=== PATIENT | female | born 1955 | race Caucasian/White ===

== ENCOUNTER 2018-04-05 18:10 | Inpatient (IN) | payer MEDICAID ==
[2018-04-05 18:20] VITALS: BMI 29.9
[2018-04-05] MEDS ORDERED: Iohexol 240 (50 ml) PO STA (19:12)
--- NOTE | 2018-04-05 19:12 | C.PDOC ---
History Of Present Illness Patient is a 62 y/o female who presents to the ED by referral for evaluation of possible diverticulitis and abscess. Patient complains of bilateral lower quadrant pain and periumbilical redness for the last 5 days. Admits to taking Cipro and Flagyl without improvement; denies fever. Patient has Hx of appendectomy, cholecystectomy, hernia repair, and ureteral stent. No other physical complaints at this time. REFERRED FOR POSSIBLE DIVERTICULITIS, ABSCESS. B/L LQ PAIN X 5 DAYS S/P CIPRO AND FLAGYL NO IMPROVE. +REDNESS PERIUMB AREA X 5 DAYS. NO FEVER. NO FEVER. PSH APPY, CLAYTON, HERNIA, URETERAL STENT. EXAM MILD DIST NONTOXIC ABD B/L LQ TEND SOFT NO R/G SKIN +PERIUMB ERYTHEMA NONBLANCHING, NO FOCAL FLUCTUANCE REMAINDER NEG Time Seen by Provider: 04/05/18 19:06 Chief Complaint (Nursing): Abdominal Pain History Per: Patient History/Exam Limitations: no limitations Onset/Duration Of Symptoms: Days (5) Current Symptoms Are (Timing): Still Present Location Of Pain/Discomfort: RLQ, LLQ, Periumbilical (redness) Radiation Of Pain To:: None Associated Symptoms: denies: Fever Recent travel outside of the [place]: No Past Medical History Reviewed: Historical Data, Nursing Documentation, Vital Signs Vital Signs: Last Vital Signs Temp 98.4 F 04/05/18 18:20 Pulse 60 04/05/18 22:19 Resp 18 04/05/18 22:19 BP 173/86 H 04/05/18 22:19 Pulse Ox 97 04/05/18 22:55 - Medical History PMH: Diverticulitis, HTN, Kidney Stones (1981) Comment Only: Chronic Kidney Disease (SEE COMMENT) Surgical History: Appendectomy (2004), Cholecystectomy (1996), Hernia Repair Other Surgeries: ureteral stent Family History: States: No Known Family Hx - Social History Hx Tobacco Use: No Hx Alcohol Use: No Hx Substance Use: No - Immunization History Hx Tetanus Toxoid Vaccination: No Hx Influenza Vaccination: No Hx Pneumococcal Vaccination: No Review Of Systems Constitutional: Negative for: Fever, Chills Gastrointestinal: Positive for: Abdominal Pain Skin: Positive for: Other (erythema to periumbilical area) Physical Exam - Physical Exam Appears: Non-toxic, In Acute Distress (mild) Skin: Other (erythema to periumbilicus, nonblanching, no focal fluctuance) Head: Atraumatic, Normacephalic Oral Mucosa: Moist Chest: Symmetrical Cardiovascular: Rhythm Regular, No Murmur Respiratory: Normal Breath Sounds, No Rales, No Rhonchi, No Wheezing Gastrointestinal/Abdominal: Soft, Tenderness (bilateral lower quadrant tenderness), No Guarding, No Rebound Back: No CVA Tenderness Extremity: Normal ROM, No Tenderness, No Pedal Edema Neurological/Psych: Oriented x3, Normal Speech, Normal Cognition Gait: Steady ED Course And Treatment - Laboratory Results Result Diagrams: 04/05/18 19:32 04/05/18 19:32 O2 Sat by Pulse Oximetry: 97 - CT Scan/US CT abdomen/pelvis Other Rad Studies (CT/US): Interpreted By Me, Read By Radiologist CT/US Interpretation: EXAM: CT Abdomen and Pelvis With Intravenous Contrast. EXAM DATE/TIME: 04/05/2018 7:12 PM. CLINICAL HISTORY: 62 years old, female; Pain; Abdominal pain; Generalized; Additional info: Abd pain RO diveriticulitis, . abscess. TECHNIQUE: Axial computed tomography images of the abdomen and pelvis with intravenous contrast. All CT. scans at this facility use one or more dose reduction techniques, viz.: automated exposure control;. ma/kV adjustment per patient size (including targeted exams where dose is matched to indication; i.e. head); or iterative reconstruction technique. CONTRAST: 100 mL of omnipaque 350 administered intravenously. COMPARISON: CT - ABD PELVIS PO CONTRAST ONLY 2016-12-21 11:00. FINDINGS: Lung bases: Unremarkable. No mass. No consolidation. ABDOMEN: Liver: Unremarkable. No mass. Gallbladder and bile ducts: Cholecystectomy. No ductal dilation. Pancreas: Unremarkable. No mass. No ductal dilation. Spleen: Unremarkable. No splenomegaly. Adrenals: Unremarkable. No mass. Kidneys and ureters: Right kidney atrophy. No hydronephrosis. Stomach and bowel: Diverticulosis is most pronounced in the sigmoid colon. No obstruction. No. mucosal thickening. PELVIS: Appendix: No findings to suggest acute appendicitis. Bladder: Unremarkable. No mass. Reproductive: Unremarkable as visualized. ABDOMEN and PELVIS: Intraperitoneal space: Inflammatory stranding is present around the sigmoid colon without gross free. air or organized or drainable fluid collection to suggest abscess. Bones /joints: No acute fracture. No dislocation. Soft tissues: Inflammatory change and mild enhancement of the umbilicus suggests an infectious. process and probable abscess measuring 1.6 x 1.1 cm. Vasculature: Unremarkable. No abdominal aortic aneurysm. Lymph nodes: Unremarkable. No enlarged lymph nodes. IMPRESSION: 1. Acute sigmoid diverticulitis. Followup colonoscopy is recommended. 2. Inflammatory change and mild enhancement of the umbilicus suggests an infectious process and. probable abscess measuring 1.6 x 1.1 cm. Progress Note: CT abdomen/pelvis and blood work ordered. Omnipaque administered. Progress - Re-Evaluation Re-evaluation Note: 04/05/18 22:[address] REPORT REVIEWED. PENDING CALLBACK PMD 04/05/18 22:58 D/W DR CASTILLO WILL ADMIT - Data Reviewed Data Reviewed: Lab, Diagnostic imaging, Old records Disposition Counseled Patient/Family Regarding: Studies Performed, Diagnosis - Disposition Disposition: HOSPITALIZED Disposition Time: 22:59 Condition: STABLE Forms: [facility] ([place]) - POA Present On Arrival: Poor Glycemic Control - Clinical Impression Clinical Impression: Diverticulitis, Abdominal wall abscess - Scribe Statement The provider has reviewed the documentation as recorded by the Scribe Kacey Zamarripa All medical record entries made by the Scribe were at my direction and personally dictated by me. I have reviewed the chart and agree that the record accurately reflects my personal performance of the history, physical exam, medical decision making, and the department course for this patient. I have also personally directed, reviewed, and agree with the discharge instructions and disposition. Decision To Admit - Pt Status Changed To: Hospital Disposition Of: Inpatient - Admit Certification Admit to Inpatient:: After my assessment, the patient will require hospitalization for at least two midnights. This is because of the severity of symptoms shown, intensity of services needed, and/or the medical risk in this patient being treated as an outpatient. - InPatient: Physician Admission Certification:: SEE NOTE - . Bed Request Type: Regular Admitting Physician: Sandy Castillo Patient Diagnosis: Diverticulitis, Abdominal wall abscess
[2018-04-05] MEDS ORDERED: Iohexol 240 (50 ml) ONE (19:27)
[2018-04-05 19:39] LABS: BASO # 0.1 K/uL (0.0-0.2); BASO % 0.6 % (0.0-2.0); LYMPH # 1.9 K/uL (1.0-4.3); LYMPH % 22.9 % (20.0-40.0); MEAN CELL VOLUME 82.9 fL (81.0-99.0); MEAN CORPUSCULAR HEMOGLOBIN 28.2 pg (27.0-31.0); MEAN CORPUSCULAR HGB CONC 34.1 g/dL (33.0-37.0); MONO # 0.6 K/uL (0.0-0.8); MONO % 6.9 % (0.0-10.0); NEUT # 5.9 K/uL (1.8-7.0); NEUT % 69.6 % (50.0-75.0); NRBC % 0.1 % (0.0-2.0); RBC 4.97 Mil/uL (3.80-5.20); RED CELL DISTRIBUTION WIDTH 13.6 % (11.5-14.5); WHITE BLOOD COUNT 8.5 K/uL (4.8-10.8)
[2018-04-05 19:46] LABS: URINE BILIRUBIN NEGATIVE (NEGATIVE); URINE BLOOD 1+ (NEGATIVE); URINE CLARITY Clear (Clear); URINE COLOR Yellow (YELLOW); URINE GLUCOSE (UA) NORMAL (Normal); URINE LEUKOCYTE ESTERASE NEG Leu/uL (Negative); URINE PROTEIN 2+ mg/dL (NEGATIVE); URINE UROBILINOGEN NORMAL mg/dL (0.2-1.0)
[2018-04-05 20:08] LABS: ALB/GLOB RATIO 1.2 (1.0-2.1); ALBUMIN 4.7 g/dL (3.5-5.0); ALT/SGPT 37 U/L (9-52); AST/SGOT 51 U/L (14-36); BLOOD UREA NITROGEN 14 mg/dL (7-17); CALCIUM 9.7 mg/dl (8.6-10.4); GFR AFRICAN-AMERICAN > 60; GFR NON-AFRICAN AMERICAN > 60; LIPASE 87 U/L (23-300)
[2018-04-05] MEDS ORDERED: Iohexol 350mg/ml 100 ML ONE (21:00)
[2018-04-05] MEDS ORDERED: Piperacillin/Tazobact 3.375 gm 100 ML IV STA (22:44)
[2018-04-05] MEDS ORDERED: Piperacillin/Tazobact 3.375 gm 100 ML IVPB ONE (22:55)
[2018-04-05] MEDS ORDERED: Piperacillin/Tazobact 3.375 gm 100 ML IVPB SCH (23:15)
[2018-04-05] MEDS: metroNIDAZOLE IV 500 mg/100 ml 500 MG/100 ML BAG IVPB SCH (23:40)
[2018-04-06] MEDS: metroNIDAZOLE IV 500 mg/100 ml 500 MG/100 ML BAG IVPB SCH ×3 (05:16→21:28)
--- NOTE | 2018-04-06 06:23 | CP.PCM.CON ---
History of Present Illness - History of Present Illness History of Present Illness: 62 F w PMH of appendectomy, lap malcolm and hernia repair came with abdominal pain and umbilical redness and swelling that started 1 week ago. Pt went to PMD and was prescribed ABX but no imporvement. Pt had multiple abdominal surgeries in the past including laparoscopic surgeries. None recent. She is prone to hypertrophic scars. Denies fever, nausea, vomiting, diarrhea, weakness, cp, SOB , hematochezia, hematemesis, recent travels, trauma. Pain is located on umbilical area. Doesn' radiate. Surgery is consulted to evaluate for umbilical abscess and diverticulitis. PMH: hyperthrophic scars PSH: See above SS: moved from [place], lives with family Review of Systems - Review of Systems Review of Systems: See HPI Past Patient History - Past Medical History & Family History Past Medical History?: Yes - Past Social History Smoking Status: Never Smoked - CARDIAC Hx Cardiac Disorders: Yes Hx Hypertension: Yes - PULMONARY Hx Respiratory Disorders: No - NEUROLOGICAL Hx Neurological Disorder: No - HEENT Hx HEENT Problems: No - RENAL Hx Chronic Kidney Disease: (SEE COMMENT) Hx Kidney Stones: Yes (1981) - ENDOCRINE/METABOLIC Hx Endocrine Disorders: No - HEMATOLOGICAL/ONCOLOGICAL Hx Blood Disorders: No - INTEGUMENTARY Hx Dermatological Problems: No - MUSCULOSKELETAL/RHEUMATOLOGICAL Hx Falls: No - GASTROINTESTINAL Hx Gastrointestinal Disorders: Yes Hx Diverticulitis: Yes - GENITOURINARY/GYNECOLOGICAL Hx Genitourinary Disorders: No - PSYCHIATRIC Hx Substance Use: No - SURGICAL HISTORY Hx Surgeries: Yes Hx Appendectomy: Yes (2004) Hx Cholecystectomy: Yes (1996) Other/Comment: Hernia repair - ANESTHESIA Hx Anesthesia: Yes Hx Anesthesia Reactions: No Hx Malignant Hyperthermia: No Has any member of the family had a problem w/ anesthesia?: No Meds Allergies/Adverse Reactions: Allergies Allergy/AdvReac Type Severity Reaction Status Date / Time Sulfa (Sulfonamide Allergy ANAPHYLAXIS Verified 04/05/18 18:17 Antibiotics) - Medications Medications: Current Medications Acetaminophen (Tylenol 325mg Tab) 650 mg PO PRN PRN PRN Reason: Pain, moderate (4-7) Last Admin: 04/06/18 01:04 Dose: 650 mg Atenolol (Tenormin) 100 mg PO DAILY [facility] Enoxaparin Sodium (Lovenox) 40 mg SC DAILY [facility] Sodium Chloride (Sodium Chloride 0.45%) 2,000 mls @ 40 mls/hr IV .Q24H [facility] Last Admin: 04/06/18 01:00 Dose: 40 mls/hr Metronidazole (Flagyl) 500 mg in 100 mls @ 100 mls/hr IVPB Q8 [facility] PRN Reason: Protocol Last Admin: 04/06/18 05:16 Dose: 100 mls/hr Piperacillin Sod/Tazobactam Sod (Zosyn 3.375 Gm Iv Premix) 3.375 gm in 50 mls @ 100 mls/hr IVPB Q8H [facility] PRN Reason: Protocol Pantoprazole Sodium (Protonix Ec Tab) 40 mg PO DAILY [facility] Physical Exam - Constitutional Appears: No Acute Distress - Head Exam Head Exam: ATRAUMATIC, NORMAL INSPECTION, NORMOCEPHALIC - Eye Exam Eye Exam: EOMI, Normal appearance, PERRL Pupil Exam: NORMAL ACCOMODATION, PERRL - ENT Exam ENT Exam: Mucous Membranes Moist, Normal Exam - Neck Exam Neck exam: Positive for: Normal Inspection - Respiratory Exam Respiratory Exam: Clear to Auscultation Bilateral, NORMAL BREATHING PATTERN - Cardiovascular Exam Cardiovascular Exam: REGULAR RHYTHM - GI/Abdominal Exam GI & Abdominal Exam: Normal Bowel Sounds, Soft, Tenderness. absent: Distended, Firm, Guarding, Hernia, Mass, Rebound, Rigid Additional comments: umbilicaus has 08w30sn erythema around it. TTP. Indurated. Multiple healed abdominal scars. hyperthrophic scars. - Exam Exam: NORMAL INSPECTION - Extremities Exam Extremities exam: Positive for: normal inspection - Back Exam Back exam: NORMAL INSPECTION - Neurological Exam Neurological exam: Alert, CN II-XII Intact, Normal Gait, Oriented x3, Reflexes Normal - Psychiatric Exam Psychiatric exam: Normal Affect, Normal Mood - Skin Skin Exam: Dry, Erythema, Intact, Warm Results - Vital Signs Recent Vital Signs: Last Vital Signs Temp 97.9 F 04/06/18 03:07 Pulse 58 L 04/06/18 03:07 Resp 20 04/06/18 03:07 BP 127/71 04/06/18 03:07 Pulse Ox 98 04/06/18 03:07 - Labs Result Diagrams: 04/05/18 19:32 04/05/18 19:32 Labs: Laboratory Results - last 24 hr 04/05/18 04/05/18 04/05/18 19:32 19:32 19:32 WBC 8.5 RBC 4.97 Hgb 14.0 Hct 41.2 MCV 82.9 MCH 28.2 MCHC 34.1 RDW 13.6 Plt Count 260 MPV 9.0 Neut % (Auto) 69.6 Lymph % (Auto) 22.9 [place] % (Auto) 6.9 Eos % (Auto) 0.0 Baso % (Auto) 0.6 Neut # (Auto) 5.9 Lymph # (Auto) 1.9 [place] # (Auto) 0.6 Eos # (Auto) 0.0 Baso # (Auto) 0.1 Sodium 140 Potassium 4.9 Chloride 105 Carbon Dioxide 22 Anion Gap 10 BUN 14 Creatinine 0.7 Est GFR ( Amer) > 60 Est GFR (Non-Af Amer) > 60 Random Glucose 116 H Calcium 9.7 Total Bilirubin 1.0 AST 51 H ALT 37 Alkaline Phosphatase 100 Total Protein 8.8 H Albumin 4.7 Globulin 4.1 H Albumin/Globulin Ratio 1.2 Lipase 87 Urine Color Yellow Urine Clarity Clear Urine pH 5.0 Ur Specific [place] 1.013 Urine Protein 2+ H Urine Glucose (UA) Normal Urine Ketones Negative Urine Blood 1+ H Urine Nitrate Negative Urine Bilirubin Negative Urine Urobilinogen Normal Ur Leukocyte Esterase Neg Urine WBC (Auto) 3 Urine RBC (Auto) 1 Assessment & Plan - Assessment and Plan (Free Text) Assessment: Umibilical abscess and diverticulitis -ABX -IVF -May need I &D -Warm compress DW Dr. Kramer
[2018-04-06] MEDS: Piperacill/Tazo 3.375gm in Dex 3.375 GM/50 ML BAG IVPB SCH ×3 (06:31→22:50)
[2018-04-06] MEDS ORDERED: Lactated Ringer's 1,000 ML IV SCH (08:45)
[2018-04-06 09:20] LABS: INR 1.3; PROTHROMBIN TIME 13.9 SECONDS (9.7-12.2)
[2018-04-06] MEDS: Pantoprazole 40 mg EC Tab PO SCH ×2 (09:20→10:57)
[2018-04-06] MEDS ORDERED: Propofol 10 mg/ml Inj (20 ML) ONE (09:26)
[2018-04-06] MEDS ORDERED: Midazolam 2 MG/2 ML VIAL ONE (09:26)
[2018-04-06] MEDS ORDERED: ePHEDrine 50 mg/ml Inj ONE (09:41)
[2018-04-06] MEDS ORDERED: Lactated Ringer's 1,000 ML IV ONE (09:49)
[2018-04-06] MEDS ORDERED: HYDROmorphone 0.5 mg/0.5 ml ISec IVP PRN (09:52)
--- NOTE | 2018-04-06 09:52 | PCM.SURG1 ---
Surgeon's Initial Post Op Note - Surgeon's Notes Surgeon: MD Ca Rug Hooker Hand: JEEVAN Sousa Pre-Operative Diagnosis: Umbilical abscess Operative Findings: Umbilical abscess Post-Operative Diagnosis: umbilical abscess Operation Performed: Incision and drainage of umbilical abscess Specimen/Specimens Removed: culture of abscess Estimated Blood Loss: EBL {In ML}: 3 Date of Surgery/Procedure: 04/06/18 Time of Surgery/Procedure: 09:00
[2018-04-06] MEDS ORDERED: Enoxaparin 150 mg Syringe SC SCH (10:00)
[2018-04-06] MEDS: HYDROmorphone 0.5 mg/0.5 ml ISec IVP PRN ×2 (10:58→16:33)
--- NOTE | 2018-04-06 11:23 | CT ---
PROCEDURE: CT Abdomen and Pelvis with contrast HISTORY: ABD PAIN RO DIVERITICULITIS, ABSCESS COMPARISON: None. TECHNIQUE: Contrast dose: 100 mL Omnipaque 350 Radiation dose: Total exam DLP = 498.38 mGy-cm. This CT exam was performed using one or more of the following dose reduction techniques: Automated exposure control, adjustment of the mA and/or kV according to patient size, and/or use of iterative reconstruction technique. FINDINGS: LOWER THORAX: Unremarkable. LIVER: Unremarkable. No gross lesion or ductal dilatation. GALLBLADDER AND BILE DUCTS: Status post cholecystectomy PANCREAS: Unremarkable. No gross lesion or ductal dilatation. SPLEEN: Unremarkable. ADRENALS: Unremarkable. No mass. KIDNEYS AND URETERS: Several small bilateral renal cortical cysts. Extensive right renal atrophy. Largest cyst in right kidney, 2.4 cm. No calculus or hydronephrosis. VASCULATURE: Unremarkable. No aortic aneurysm. BOWEL: Acute sigmoid diverticulitis. No abscess. No free air. No other abnormal bowel loops. APPENDIX: Postoperative changes consistent with prior appendectomy. PERITONEUM: No ascites. No pneumoperitoneum. Bilobed fluid collection deep to the emboli kiss with peripheral enhancement around 1 of the 2 small collections measuring 1.5 cm in diameter. Possible abscess. Overlying skin thickening suggests possible cellulitis. Stranding of surrounding subcutaneous fat. LYMPH NODES: Unremarkable. No enlarged lymph nodes. BLADDER: Unremarkable. REPRODUCTIVE: Normal uterus BONES: No acute fracture. OTHER FINDINGS: None. IMPRESSION: Findings consistent with acute sigmoid diverticulitis. No abscess. No free air. No other acute abnormality. Status post appendectomy and cholecystectomy. Possible cellulitis and small umbilical abscess. Correlate clinically. Preliminary interpretation of this examination was reported by [facility] at 10:40 p.m. on 04/05/2018. There is concurrence of this report with the preliminary interpretation.
[2018-04-06] MEDS ORDERED: Sodium Chloride 0.9% 1,000 ML IV SCH ×2 (16:45→22:08)
[2018-04-06] MEDS ORDERED: Sodium Chloride 0.45% 1,000 ML IV SCH (22:45)
[2018-04-07] MEDS: metroNIDAZOLE IV 500 mg/100 ml 500 MG/100 ML BAG IVPB SCH ×3 (05:34→21:13)
--- NOTE | 2018-04-07 06:24 | CP.PCM.PN ---
Subjective - Date & Time of Evaluation Date of Evaluation: 04/07/18 Time of Evaluation: 06:21 - Subjective Subjective: SURGERY PROGRESS NOTE 62F seen and examined at bedside. Patient states pain is improved, had some nausea yesterday after the operation after eating but is now tolerating clear liquids. Denies fever or chills. Objective - Vital Signs/Intake and Output Vital Signs (last 24 hours): Temp Pulse Resp BP Pulse Ox 98.4 F 85 18 157/77 H 99 04/07/18 00:00 04/07/18 00:00 04/07/18 00:00 04/07/18 00:00 04/07/18 00:00 Intake and Output: 04/06/18 04/07/18 18:59 06:59 Intake Total 1680 400 Balance 1680 400 - Medications Medications: Current Medications Acetaminophen (Tylenol 325mg Tab) 650 mg PO PRN PRN PRN Reason: Pain, moderate (4-7) Last Admin: 04/06/18 01:04 Dose: 650 mg Amlodipine Besylate (Norvasc) 5 mg PO DAILY [facility] Atenolol (Tenormin) 100 mg PO DAILY [facility] Last Admin: 04/06/18 10:57 Dose: 100 mg Enoxaparin Sodium (Lovenox) 40 mg SC DAILY [facility] Hydromorphone HCl (Dilaudid) 0.5 mg IVP Q4H PRN PRN Reason: Pain, severe (8-10) Last Admin: 04/06/18 16:33 Dose: 0.5 mg Metronidazole (Flagyl) 500 mg in 100 mls @ 100 mls/hr IVPB Q8 [facility] PRN Reason: Protocol Last Admin: 04/07/18 05:34 Dose: 100 mls/hr Piperacillin Sod/Tazobactam Sod (Zosyn 3.375 Gm Iv Premix) 3.375 gm in 50 mls @ 100 mls/hr IVPB Q8H [facility] PRN Reason: Protocol Last Admin: 04/06/18 22:50 Dose: 100 mls/hr Sodium Chloride (Sodium Chloride 0.45%) 1,000 mls @ 50 mls/hr IV .Q20H [facility] Last Admin: 04/06/18 22:51 Dose: 50 mls/hr Ondansetron HCl (Zofran Inj) 4 mg IVP Q4 PRN PRN Reason: Nausea/Vomiting Last Admin: 04/06/18 16:50 Dose: 4 mg Pantoprazole Sodium (Protonix Ec Tab) 40 mg PO DAILY [facility] Last Admin: 04/06/18 10:57 Dose: 40 mg - Labs Labs: 04/05/18 19:32 04/05/18 19:32 PT 13.9 SECONDS (9.7-12.2) H 04/06/18 08:58 INR 1.3 04/06/18 08:58 APTT 34 SECONDS (21-34) 04/06/18 08:58 - Constitutional Appears: Non-toxic, No Acute Distress - Respiratory Exam Respiratory Exam: Clear to Ausculation Bilateral, NORMAL BREATHING PATTERN - Cardiovascular Exam Cardiovascular Exam: REGULAR RHYTHM, +S1, +S2 - GI/Abdominal Exam GI & Abdominal Exam: Soft, Tenderness (tenderness around umbilicus, dressing is mildy stain with serosang fluid, purulent drainage, packing in place). absent: Distended, Firm, Guarding, Rigid, Rebound Assessment and Plan - Assessment and Plan (Free Text) Assessment: 62F s/p I&D of umbilical abscess Plan: adv diet as raheem pain control Monitor I&D site dressing changes monitor CBC Further recs discuss with Dr. Ca Sousa, PGY2
[2018-04-07] MEDS: Piperacill/Tazo 3.375gm in Dex 3.375 GM/50 ML BAG IVPB SCH ×3 (06:48→22:39)
[2018-04-07 08:52] LABS: BASO % 0.3 % (0.0-2.0); HEMOGLOBIN 13.9 g/dL (11.0-16.0); LYMPH # 2.3 K/uL (1.0-4.3); LYMPH % 16.2 % (20.0-40.0); MEAN CORPUSCULAR HEMOGLOBIN 28.4 pg (27.0-31.0); MEAN CORPUSCULAR HGB CONC 34.2 g/dL (33.0-37.0); MEAN PLATELET VOLUME 8.9 fL (7.2-11.7); MONO # 0.9 K/uL (0.0-0.8); MONO % 6.1 % (0.0-10.0); NEUT # 10.9 K/uL (1.8-7.0); NEUT % 77.4 % (50.0-75.0); RBC 4.9 Mil/uL (3.80-5.20); RED CELL DISTRIBUTION WIDTH 13.4 % (11.5-14.5); WHITE BLOOD COUNT 14.1 K/uL (4.8-10.8)
[2018-04-07 09:04] LABS: BLOOD UREA NITROGEN 8 mg/dL (7-17); CALCIUM 8.6 mg/dl (8.6-10.4); GFR AFRICAN-AMERICAN > 60; GFR NON-AFRICAN AMERICAN > 60
[2018-04-07] MEDS: Enoxaparin 40 mg Syringe SC SCH (09:04)
[2018-04-07] MEDS: Pantoprazole 40 mg EC Tab PO SCH (09:04)
[2018-04-07] MEDS ORDERED: Potassium Chloride 20 mEq ER Tab PO SCH (10:00)
--- NOTE | 2018-04-07 16:42 | CP.PCM.HP ---
History of Present Illness - History of Present Illness History of Present Illness: 62 year old treated as oupt for cellulitis periumbelical and sigmoid diverticulitis with avelox. Pt's cellulits did not improve and showed a induration periumbilical with tenderness. PT was admited for IV abx and suspected abd abscess. Present on Admission - Present on Admission Any Indicators Present on Admission: No Review of Systems - Constitutional Constitutional: absent: Chills, Fatigue, Fever - EENT Eyes: absent: Blurred Vision Ears: absent: Decreased Hearing - Cardiovascular Cardiovascular: absent: Chest Pain - Respiratory Respiratory: absent: Wheezing - Gastrointestinal Gastrointestinal: Abdominal Pain Past Patient History - Past Medical History & Family History Past Medical History?: Yes - Past Social History Smoking Status: Never Smoked - CARDIAC Hx Cardiac Disorders: Yes Hx Hypertension: Yes - PULMONARY Hx Respiratory Disorders: No - NEUROLOGICAL Hx Neurological Disorder: No - HEENT Hx HEENT Problems: No - RENAL Hx Chronic Kidney Disease: (SEE COMMENT) Hx Kidney Stones: Yes (1981) - ENDOCRINE/METABOLIC Hx Endocrine Disorders: No - HEMATOLOGICAL/ONCOLOGICAL Hx Blood Disorders: No - INTEGUMENTARY Hx Dermatological Problems: No - MUSCULOSKELETAL/RHEUMATOLOGICAL Hx Falls: No - GASTROINTESTINAL Hx Gastrointestinal Disorders: Yes Hx Diverticulitis: Yes - GENITOURINARY/GYNECOLOGICAL Hx Genitourinary Disorders: No - PSYCHIATRIC Hx Substance Use: No - SURGICAL HISTORY Hx Surgeries: Yes Hx Appendectomy: Yes (2004) Hx Cholecystectomy: Yes (1996) Other/Comment: Hernia repair - ANESTHESIA Hx Anesthesia: Yes Hx Anesthesia Reactions: No Hx Malignant Hyperthermia: No Has any member of the family had a problem w/ anesthesia?: No Meds Home Medications: Home Medication List Medication Instructions Recorded Confirmed Type Pantoprazole [Protonix EC Tab] 40 mg PO DAILY ect 04/09/18 Rx Allergies/Adverse Reactions: Allergies Allergy/AdvReac Type Severity Reaction Status Date / Time Sulfa (Sulfonamide Allergy ANAPHYLAXIS Verified 04/05/18 18:17 Antibiotics) Physical Exam - Constitutional Appears: Well, Non-toxic - Eye Exam Eye Exam: Normal appearance - ENT Exam ENT Exam: Mucous Membranes Moist - Respiratory Exam Respiratory Exam: Clear to Auscultation Bilateral. absent: Rales, Rhonchi, Wheezes - Cardiovascular Exam Cardiovascular Exam: REGULAR RHYTHM, RRR, +S1, +S2. absent: JVD - GI/Abdominal Exam GI & Abdominal Exam: Normal Bowel Sounds, Tenderness Additional comments: periumbical redness and tenderness Results - Vital Signs Recent Vital Signs: Last Vital Signs Temp 98.9 F 04/07/18 08:00 Pulse 86 04/07/18 08:00 Resp 18 04/07/18 08:00 BP 150/70 04/07/18 08:00 Pulse Ox 98 04/07/18 08:00 - Labs Result Diagrams: 04/09/18 07:18 04/09/18 07:18 Labs: Laboratory Results - last 24 hr 04/07/18 04/07/18 08:30 08:30 WBC 14.1 H D RBC 4.90 Hgb 13.9 Hct 40.7 MCV 83.0 MCH 28.4 MCHC 34.2 RDW 13.4 Plt Count 238 MPV 8.9 Neut % (Auto) 77.4 H Lymph % (Auto) 16.2 L [place] % (Auto) 6.1 Eos % (Auto) 0.0 Baso % (Auto) 0.3 Neut # (Auto) 10.9 H Lymph # (Auto) 2.3 [place] # (Auto) 0.9 H Eos # (Auto) 0.0 Baso # (Auto) 0.0 Sodium 140 Potassium 3.2 L Chloride 102 Carbon Dioxide 23 Anion Gap 19 BUN 8 Creatinine 0.8 Est GFR ( Amer) > 60 Est GFR (Non-Af Amer) > 60 Random Glucose 125 H Calcium 8.6 Phosphorus 4.0 Magnesium 1.8 Assessment & Plan - Assessment and Plan (Free Text) Assessment: Acute sigmoid diverticulitis periumbelical cellulitis and abscess HTN abx blood culture surgical and gi eval fluids clear liquids
--- NOTE | 2018-04-07 16:45 | CP.PCM.PN ---
Subjective - Date & Time of Evaluation Date of Evaluation: 04/07/18 Time of Evaluation: 16:45 - Subjective Subjective: PT reports no abd pain, does feel nausea. No chest pain or sob. PT states she has not been driking much due to nausea. pt feels otherwise ok;. sp drainage of abd abscess. _+loose bm Objective - Vital Signs/Intake and Output Vital Signs (last 24 hours): Temp Pulse Resp BP Pulse Ox 98.9 F 86 18 150/70 98 04/07/18 08:00 04/07/18 08:00 04/07/18 08:00 04/07/18 08:00 04/07/18 08:00 Intake and Output: 04/07/18 04/07/18 06:59 18:59 Intake Total 920 700 Balance 920 700 - Medications Medications: Current Medications Acetaminophen (Tylenol 325mg Tab) 650 mg PO PRN PRN PRN Reason: Pain, moderate (4-7) Last Admin: 04/06/18 01:04 Dose: 650 mg Amlodipine Besylate (Norvasc) 5 mg PO DAILY [facility] Last Admin: 04/07/18 09:04 Dose: 5 mg Atenolol (Tenormin) 100 mg PO DAILY [facility] Last Admin: 04/07/18 09:04 Dose: 100 mg Enoxaparin Sodium (Lovenox) 40 mg SC DAILY [facility] Last Admin: 04/07/18 09:04 Dose: 40 mg Hydromorphone HCl (Dilaudid) 0.5 mg IVP Q4H PRN PRN Reason: Pain, severe (8-10) Last Admin: 04/06/18 16:33 Dose: 0.5 mg Metronidazole (Flagyl) 500 mg in 100 mls @ 100 mls/hr IVPB Q8 [facility] PRN Reason: Protocol Last Admin: 04/07/18 13:05 Dose: 100 mls/hr Piperacillin Sod/Tazobactam Sod (Zosyn 3.375 Gm Iv Premix) 3.375 gm in 50 mls @ 100 mls/hr IVPB Q8H [facility] PRN Reason: Protocol Last Admin: 04/07/18 14:35 Dose: 100 mls/hr Potassium Chloride/Dextrose/Sod Cl (Potassium Chl 20 Meq In D5-1/2ns) 1,000 mls @ 100 mls/hr IV .Q10H [facility] Metoclopramide HCl (Reglan) 10 mg IVP Q6H [facility] Pantoprazole Sodium (Protonix Ec Tab) 40 mg PO DAILY [facility] Last Admin: 04/07/18 09:04 Dose: 40 mg Potassium Chloride (K-Dur 20 Meq Er Tab) 20 meq PO DAILY [facility] Last Admin: 04/07/18 09:59 Dose: 20 meq - Labs Labs: 04/07/18 08:30 04/07/18 08:30 PT 13.9 SECONDS (9.7-12.2) H 04/06/18 08:58 INR 1.3 04/06/18 08:58 APTT 34 SECONDS (21-34) 04/06/18 08:58 - Constitutional Appears: Non-toxic, No Acute Distress - Eye Exam Eye Exam: Normal appearance - ENT Exam ENT Exam: Mucous Membranes Moist - Respiratory Exam Respiratory Exam: Clear to Ausculation Bilateral, NORMAL BREATHING PATTERN. absent: Rales - Cardiovascular Exam Cardiovascular Exam: RRR, +S1, +S2. absent: JVD, Rubs - GI/Abdominal Exam GI & Abdominal Exam: Normal Bowel Sounds - Extremities Exam Extremities Exam: Normal Inspection. absent: Pedal Edema (abdomen, no discharge form abdomen, site of abscess dranage, redness better.) Assessment and Plan - Assessment and Plan (Free Text) Assessment: acute sigmoid diverticulitis\ sp drainage of periumbilical abscess low K htn nausea fluids changed K being replaced cont abx loose bm check for c diff bp meds adjusted
[2018-04-07] MEDS: Potassium Chloride 20 MEQ in Dextrose 5%/0.45% NS 1,000 ML IV SCH (17:13)
[2018-04-08] MEDS: Potassium Chloride 20 MEQ in Dextrose 5%/0.45% NS 1,000 ML IV SCH ×4 (02:55→19:00)
[2018-04-08] MEDS: metroNIDAZOLE IV 500 mg/100 ml 500 MG/100 ML BAG IVPB SCH ×3 (05:05→21:13)
[2018-04-08] MEDS: Piperacill/Tazo 3.375gm in Dex 3.375 GM/50 ML BAG IVPB SCH ×3 (07:02→23:29)
[2018-04-08 07:24] LABS: BASO % 0.6 % (0.0-2.0); EOS % 0.1 % (0.0-4.0); HEMOGLOBIN 12.8 g/dL (11.0-16.0); LYMPH # 1.6 K/uL (1.0-4.3); LYMPH % 19.5 % (20.0-40.0); MEAN CELL VOLUME 82.8 fL (81.0-99.0); MEAN CORPUSCULAR HEMOGLOBIN 28.5 pg (27.0-31.0); MEAN CORPUSCULAR HGB CONC 34.5 g/dL (33.0-37.0); MONO # 0.7 K/uL (0.0-0.8); MONO % 8.7 % (0.0-10.0); NEUT # 5.8 K/uL (1.8-7.0); NEUT % 71.1 % (50.0-75.0); NRBC % 0.1 % (0.0-2.0); RBC 4.5 Mil/uL (3.80-5.20); WHITE BLOOD COUNT 8.1 K/uL (4.8-10.8)
[2018-04-08 07:49] LABS: BLOOD UREA NITROGEN 5 mg/dL (7-17); CALCIUM 8.5 mg/dl (8.6-10.4); GFR AFRICAN-AMERICAN > 60; GFR NON-AFRICAN AMERICAN > 60
--- NOTE | 2018-04-08 07:55 | OP ---
PROCEDURE DATE: 04/06/2018 PREOPERATIVE DIAGNOSIS: Abdominal wall abscess possible intraabdominal abscess. PROCEDURE: Incision and drainage. SURGEON: Ronnie Kramer Jr., MD. CANE SPLICER: James Mandel. ANESTHESIOLOGIST: Oswaldo López DO INDICATIONS: A 62-year-old woman, history of previous surgery via her umbilicus and previous repair of a hernia, who now presents with an abscess centered around the umbilicus in the old scar. OPERATIVE FINDINGS: Initially, we attempted to aspirate this and we were unsuccessful in aspirating any fluid. We then made a direct incision over it and there was approximately 5 mL of pus, which came out. This was sent for culture and sensitivity as well as Gram stain. This was irrigated out. There was no involvement of the bowel and I was unable to palpate any mesh underneath the incision. We then packed the wound open and terminated the procedure. Blood loss for the procedure was 3 mL. Operation carried out, incision and drainage of abdominal wall/intraabdominal abscess. Ronnie Kramer Jr., MD
[2018-04-08 08:17] VITALS: RESP 20
[2018-04-08] MEDS: Enoxaparin 40 mg Syringe SC SCH (10:02)
[2018-04-08] MEDS: Pantoprazole 40 mg EC Tab PO SCH (10:02)
[2018-04-08] MEDS ORDERED: Oxycodone/Acetaminophen 5/325 mg Tab PO PRN (13:59)
--- NOTE | 2018-04-08 14:03 | CP.PCM.PN ---
Subjective - Date & Time of Evaluation Date of Evaluation: 04/08/18 Time of Evaluation: 14:00 - Subjective Subjective: Surgery Pt seen and examined with Dr. Penaloza. No acute events. Denies fever, nausea, diarhea. pain controlled. Tolerating diet. Voiding. Dressing changed . Objective - Vital Signs/Intake and Output Vital Signs (last 24 hours): Temp Pulse Resp BP Pulse Ox 98.3 F 60 20 133/83 96 04/08/18 08:15 04/08/18 08:15 04/08/18 08:15 04/08/18 08:15 04/08/18 08:15 Intake and Output: 04/08/18 04/08/18 06:59 18:59 Intake Total 1870 Balance 1870 - Medications Medications: Current Medications Acetaminophen (Tylenol 325mg Tab) 650 mg PO Q8 PRN PRN Reason: Pain, moderate (4-7) Amlodipine Besylate (Norvasc) 5 mg PO DAILY [facility] Last Admin: 04/08/18 10:03 Dose: 5 mg Atenolol (Tenormin) 100 mg PO DAILY [facility] Last Admin: 04/08/18 10:03 Dose: 100 mg Enoxaparin Sodium (Lovenox) 40 mg SC DAILY [facility] Last Admin: 04/08/18 10:02 Dose: 40 mg Hydromorphone HCl (Dilaudid) 0.5 mg IVP Q4H PRN PRN Reason: Pain, severe (8-10) Last Admin: 04/06/18 16:33 Dose: 0.5 mg Metronidazole (Flagyl) 500 mg in 100 mls @ 100 mls/hr IVPB Q8 [facility] PRN Reason: Protocol Last Admin: 04/08/18 13:54 Dose: 100 mls/hr Piperacillin Sod/Tazobactam Sod (Zosyn 3.375 Gm Iv Premix) 3.375 gm in 50 mls @ 100 mls/hr IVPB Q8H [facility] PRN Reason: Protocol Last Admin: 04/08/18 07:02 Dose: 100 mls/hr Potassium Chloride 20 meq/ (Dextrose/Sodium Chloride) 1,010 mls @ 100 mls/hr IV .Q10H6M [facility] Last Admin: 04/08/18 05:04 Dose: 100 mls/hr Metoclopramide HCl (Reglan) 10 mg IVP Q6H [facility] Last Admin: 04/08/18 10:02 Dose: 10 mg Oxycodone/Acetaminophen (Percocet 5/325 Mg Tab) 2 tab PO Q4H PRN PRN Reason: Pain, moderate (4-7) Stop: 04/11/18 14:00 Pantoprazole Sodium (Protonix Ec Tab) 40 mg PO DAILY [facility] Last Admin: 04/08/18 10:02 Dose: 40 mg - Labs Labs: 04/08/18 07:05 04/08/18 07:05 PT 13.9 SECONDS (9.7-12.2) H 04/06/18 08:58 INR 1.3 04/06/18 08:58 APTT 34 SECONDS (21-34) 04/06/18 08:58 - Constitutional Appears: No Acute Distress - Head Exam Head Exam: ATRAUMATIC, NORMAL INSPECTION, NORMOCEPHALIC - Eye Exam Eye Exam: EOMI, Normal appearance, PERRL Pupil Exam: NORMAL ACCOMODATION, PERRL - ENT Exam ENT Exam: Mucous Membranes Moist, Normal Exam - Neck Exam Neck Exam: Full ROM, Normal Inspection. absent: Lymphadenopathy - Respiratory Exam Respiratory Exam: Clear to Ausculation Bilateral, NORMAL BREATHING PATTERN - Cardiovascular Exam Cardiovascular Exam: REGULAR RHYTHM, +S1, +S2. absent: Murmur - GI/Abdominal Exam GI & Abdominal Exam: Soft, Normal Bowel Sounds. absent: Tenderness Additional comments: umbilical incision. draining SS fluids. 3cm incision. open. - Exam Exam: NORMAL INSPECTION - Extremities Exam Extremities Exam: Full ROM, Normal Capillary Refill, Normal Inspection. absent : Joint Swelling, Pedal Edema - Back Exam Back Exam: NORMAL INSPECTION - Neurological Exam Neurological Exam: Alert, Awake, CN II-XII Intact, Normal Gait, Oriented x3 - Psychiatric Exam Psychiatric exam: Normal Affect, Normal Mood - Skin Skin Exam: Dry, Erythema, Warm Assessment and Plan - Assessment and Plan (Free Text) Assessment: 62F POD 2 s/p I&D of umbilical abscess Plan: Clear for DC for surgical standpoint. adv diet as raheem pain control Monitor I&D site dressing changes monitor CBC OK to shower ABX discussed with Dr. Penaloza
--- NOTE | 2018-04-08 14:14 | CP.PCM.PN ---
Subjective - Date & Time of Evaluation Date of Evaluation: 04/08/18 Time of Evaluation: 17:49 - Subjective Subjective: Low K being repaleced today PT feels better wants to eat regular food however stool reported dark in color sent for delores tolentino diff calcium being replaced as well cont abx gi eval Objective - Vital Signs/Intake and Output Vital Signs (last 24 hours): Temp Pulse Resp BP Pulse Ox 98.3 F 60 20 133/83 96 04/08/18 08:15 04/08/18 08:15 04/08/18 08:15 04/08/18 08:15 04/08/18 08:15 Intake and Output: 04/08/18 04/08/18 06:59 18:59 Intake Total 1870 Balance 1870 - Medications Medications: Current Medications Acetaminophen (Tylenol 325mg Tab) 650 mg PO Q8 PRN PRN Reason: Pain, MILD 1-3 Amlodipine Besylate (Norvasc) 5 mg PO DAILY [facility] Last Admin: 04/08/18 10:03 Dose: 5 mg Atenolol (Tenormin) 100 mg PO DAILY [facility] Last Admin: 04/08/18 10:03 Dose: 100 mg Enoxaparin Sodium (Lovenox) 40 mg SC DAILY [facility] Last Admin: 04/08/18 10:02 Dose: 40 mg Hydromorphone HCl (Dilaudid) 0.5 mg IVP Q4H PRN PRN Reason: Pain, severe (8-10) Last Admin: 04/06/18 16:33 Dose: 0.5 mg Metronidazole (Flagyl) 500 mg in 100 mls @ 100 mls/hr IVPB Q8 [facility] PRN Reason: Protocol Last Admin: 04/08/18 13:54 Dose: 100 mls/hr Piperacillin Sod/Tazobactam Sod (Zosyn 3.375 Gm Iv Premix) 3.375 gm in 50 mls @ 100 mls/hr IVPB Q8H [facility] PRN Reason: Protocol Last Admin: 04/08/18 07:02 Dose: 100 mls/hr Potassium Chloride 20 meq/ (Dextrose/Sodium Chloride) 1,010 mls @ 100 mls/hr IV .Q10H6M [facility] Last Admin: 04/08/18 14:02 Dose: Not Given Calcium Gluconate 2,000 mg/ (Sodium Chloride) 270 mls @ 0 mls/hr IVPB ONCE ONE PRN Reason: Per Protocol Stop: 04/08/18 14:13 Metoclopramide HCl (Reglan) 10 mg IVP Q6H [facility] Last Admin: 04/08/18 10:02 Dose: 10 mg Oxycodone/Acetaminophen (Percocet 5/325 Mg Tab) 2 tab PO Q4H PRN PRN Reason: Pain, moderate (4-7) Stop: 04/11/18 14:00 Pantoprazole Sodium (Protonix Ec Tab) 40 mg PO DAILY [facility] Last Admin: 04/08/18 10:02 Dose: 40 mg - Labs Labs: 04/08/18 07:05 04/08/18 07:05 PT 13.9 SECONDS (9.7-12.2) H 04/06/18 08:58 INR 1.3 04/06/18 08:58 APTT 34 SECONDS (21-34) 04/06/18 08:58 - Eye Exam Eye Exam: Normal appearance - ENT Exam ENT Exam: Mucous Membranes Moist - Respiratory Exam Respiratory Exam: NORMAL BREATHING PATTERN - Cardiovascular Exam Cardiovascular Exam: REGULAR RHYTHM, RRR, +S1, +S2. absent: JVD, Rubs
[2018-04-09] MEDS: metroNIDAZOLE IV 500 mg/100 ml 500 MG/100 ML BAG IVPB SCH ×2 (05:24→13:28)
[2018-04-09] MEDS: Piperacill/Tazo 3.375gm in Dex 3.375 GM/50 ML BAG IVPB SCH ×2 (06:51→15:30)
[2018-04-09 07:35] LABS: BASO % 0.6 % (0.0-2.0); EOS % 0.1 % (0.0-4.0); LYMPH # 1.6 K/uL (1.0-4.3); LYMPH % 26.6 % (20.0-40.0); MEAN CELL VOLUME 82.2 fL (81.0-99.0); MEAN CORPUSCULAR HEMOGLOBIN 28.4 pg (27.0-31.0); MEAN CORPUSCULAR HGB CONC 34.5 g/dL (33.0-37.0); MEAN PLATELET VOLUME 8.9 fL (7.2-11.7); MONO # 0.6 K/uL (0.0-0.8); MONO % 9.7 % (0.0-10.0); NEUT # 3.9 K/uL (1.8-7.0); NRBC % 0.1 % (0.0-2.0); RBC 4.59 Mil/uL (3.80-5.20); RED CELL DISTRIBUTION WIDTH 13.4 % (11.5-14.5); WHITE BLOOD COUNT 6.2 K/uL (4.8-10.8)
[2018-04-09 07:50] LABS: BLOOD UREA NITROGEN 3 mg/dL (7-17); CALCIUM 8.9 mg/dl (8.6-10.4); GFR AFRICAN-AMERICAN > 60; GFR NON-AFRICAN AMERICAN > 60
[2018-04-09] MEDS: Potassium Chloride 20 MEQ in Dextrose 5%/0.45% NS 1,000 ML IV SCH (08:51)
[2018-04-09 09:04] VITALS: O2SAT 97
[2018-04-09] MEDS: Enoxaparin 40 mg Syringe SC SCH (09:44)
[2018-04-09] MEDS: Pantoprazole 40 mg EC Tab PO SCH (09:45)
--- NOTE | 2018-04-09 15:05 | CP.PCM.PN ---
Subjective - Date & Time of Evaluation Date of Evaluation: 04/09/18 Time of Evaluation: 15:06 - Subjective Subjective: Surgery Pt seen and examined. dressing changed this AM. No acute events. Tolerating diet. Has BM. Voiding. Pain controlled. Objective - Vital Signs/Intake and Output Vital Signs (last 24 hours): Temp Pulse Resp BP Pulse Ox 98.2 F 68 20 154/75 H 97 04/09/18 08:00 04/09/18 08:00 04/09/18 08:00 04/09/18 08:00 04/09/18 08:00 Intake and Output: 04/09/18 04/09/18 06:59 18:59 Intake Total 1200 Balance 1200 - Medications Medications: Current Medications Acetaminophen (Tylenol 325mg Tab) 650 mg PO Q8 PRN PRN Reason: Pain, MILD 1-3 Amlodipine Besylate (Norvasc) 5 mg PO DAILY [facility] Last Admin: 04/09/18 09:45 Dose: 5 mg Atenolol (Tenormin) 100 mg PO DAILY [facility] Last Admin: 04/09/18 09:45 Dose: 100 mg Enoxaparin Sodium (Lovenox) 40 mg SC DAILY [facility] Last Admin: 04/09/18 09:44 Dose: 40 mg Hydromorphone HCl (Dilaudid) 0.5 mg IVP Q4H PRN PRN Reason: Pain, severe (8-10) Last Admin: 04/06/18 16:33 Dose: 0.5 mg Metronidazole (Flagyl) 500 mg in 100 mls @ 100 mls/hr IVPB Q8 [facility] PRN Reason: Protocol Last Admin: 04/09/18 13:28 Dose: 100 mls/hr Piperacillin Sod/Tazobactam Sod (Zosyn 3.375 Gm Iv Premix) 3.375 gm in 50 mls @ 100 mls/hr IVPB Q8H [facility] PRN Reason: Protocol Last Admin: 04/09/18 06:51 Dose: 100 mls/hr Potassium Chloride 20 meq/ (Dextrose/Sodium Chloride) 1,010 mls @ 100 mls/hr IV .Q10H6M [facility] Last Admin: 04/09/18 08:51 Dose: 100 mls/hr Metoclopramide HCl (Reglan) 10 mg IVP Q6H [facility] Last Admin: 04/09/18 09:45 Dose: 10 mg Oxycodone/Acetaminophen (Percocet 5/325 Mg Tab) 2 tab PO Q4H PRN PRN Reason: Pain, moderate (4-7) Stop: 04/11/18 14:00 Pantoprazole Sodium (Protonix Ec Tab) 40 mg PO DAILY [facility] Last Admin: 04/09/18 09:45 Dose: 40 mg - Labs Labs: 04/09/18 07:18 04/09/18 07:18 PT 13.9 SECONDS (9.7-12.2) H 04/06/18 08:58 INR 1.3 04/06/18 08:58 APTT 34 SECONDS (21-34) 04/06/18 08:58 - Constitutional Appears: No Acute Distress - Head Exam Head Exam: ATRAUMATIC, NORMAL INSPECTION, NORMOCEPHALIC - Eye Exam Eye Exam: EOMI, Normal appearance, PERRL Pupil Exam: NORMAL ACCOMODATION, PERRL - ENT Exam ENT Exam: Mucous Membranes Moist, Normal Exam - Neck Exam Neck Exam: Full ROM, Normal Inspection. absent: Lymphadenopathy - Respiratory Exam Respiratory Exam: Clear to Ausculation Bilateral, NORMAL BREATHING PATTERN - Cardiovascular Exam Cardiovascular Exam: REGULAR RHYTHM, +S1, +S2. absent: Murmur - GI/Abdominal Exam GI & Abdominal Exam: Soft, Normal Bowel Sounds. absent: Distended, Firm, Guarding, Rigid, Tenderness Additional comments: umbilical incision open 3cm. Draining small amount of ss fluids - Extremities Exam Extremities Exam: Full ROM, Normal Capillary Refill, Normal Inspection. absent : Joint Swelling, Pedal Edema - Back Exam Back Exam: NORMAL INSPECTION - Neurological Exam Neurological Exam: Alert, Awake, CN II-XII Intact, Normal Gait, Oriented x3 - Psychiatric Exam Psychiatric exam: Normal Affect, Normal Mood - Skin Skin Exam: Erythema, Warm Assessment and Plan - Assessment and Plan (Free Text) Assessment: 62F POD 3 s/p I&D of umbilical abscess. diverticulitis Plan: Clear for DC for surgical standpoint. adv diet as raheem pain control Monitor I&D site dressing changes PRN monitor CBC OK to shower ABX discussed with Dr. Penaloza
[2018-04-09 15:47] VITALS: BP 148/81; PULSE 61; TEMP 98
--- NOTE | 2018-04-09 16:54 | CP.PCM.CON ---
History of Present Illness - History of Present Illness History of Present Illness: This is a 62 year old woman with diverticulitis and subcutaneous abscess. Patient is known to me from the office. Colonoscopy was done 01/31/2008 and showed diverticulosis and a small cecal polyp. She was hospitalized in September, for an episode of diverticulitis. She was admitted 04/05/2018 with a one-week history of bilateral lower abdominal pain and erythema of the periumbiical skin which did not improve with ciprofloxacin and metronidazole. CT scan showed an abdominal wall abscess and sigmoid diverticulitis. She vomited once last week. She is currently having diarrhea, two loose bowel movements daily, without bleeding, which she attributes to antibiotics. She denies having heartburn, difficulty swallowing. Review of Systems - Constitutional Constitutional: absent: Chills, Fever - Cardiovascular Cardiovascular: absent: Chest Pain, Dyspnea - Respiratory Respiratory: absent: Dyspnea - Gastrointestinal Gastrointestinal: Abdominal Pain, Diarrhea, Nausea, Vomiting. absent: Dysphagia , Heartburn, Hematemesis, Hematochezia Past Patient History - Past Medical History & Family History Past Medical History?: Yes - Past Social History Smoking Status: Never Smoked - CARDIAC Hx Cardiac Disorders: Yes Hx Hypertension: Yes - PULMONARY Hx Respiratory Disorders: No - NEUROLOGICAL Hx Neurological Disorder: No - HEENT Hx HEENT Problems: No - RENAL Hx Chronic Kidney Disease: (SEE COMMENT) Hx Kidney Stones: Yes (1981) - ENDOCRINE/METABOLIC Hx Endocrine Disorders: No - HEMATOLOGICAL/ONCOLOGICAL Hx Blood Disorders: No - INTEGUMENTARY Hx Dermatological Problems: No - MUSCULOSKELETAL/RHEUMATOLOGICAL Hx Falls: No - GASTROINTESTINAL Hx Gastrointestinal Disorders: Yes Hx Diverticulitis: Yes - GENITOURINARY/GYNECOLOGICAL Hx Genitourinary Disorders: No - PSYCHIATRIC Hx Substance Use: No - SURGICAL HISTORY Hx Surgeries: Yes Hx Appendectomy: Yes (2004) Hx Cholecystectomy: Yes (1996) Other/Comment: Hernia repair - ANESTHESIA Hx Anesthesia: Yes Hx Anesthesia Reactions: No Hx Malignant Hyperthermia: No Has any member of the family had a problem w/ anesthesia?: No Meds Allergies/Adverse Reactions: Allergies Allergy/AdvReac Type Severity Reaction Status Date / Time Sulfa (Sulfonamide Allergy ANAPHYLAXIS Verified 04/05/18 18:17 Antibiotics) - Medications Medications: Current Medications Acetaminophen (Tylenol 325mg Tab) 650 mg PO Q8 PRN PRN Reason: Pain, MILD 1-3 Amlodipine Besylate (Norvasc) 5 mg PO DAILY [facility] Last Admin: 04/09/18 09:45 Dose: 5 mg Atenolol (Tenormin) 100 mg PO DAILY [facility] Last Admin: 04/09/18 09:45 Dose: 100 mg Enoxaparin Sodium (Lovenox) 40 mg SC DAILY [facility] Last Admin: 04/09/18 09:44 Dose: 40 mg Hydromorphone HCl (Dilaudid) 0.5 mg IVP Q4H PRN PRN Reason: Pain, severe (8-10) Last Admin: 04/06/18 16:33 Dose: 0.5 mg Metronidazole (Flagyl) 500 mg in 100 mls @ 100 mls/hr IVPB Q8 [facility] PRN Reason: Protocol Last Admin: 04/09/18 13:28 Dose: 100 mls/hr Piperacillin Sod/Tazobactam Sod (Zosyn 3.375 Gm Iv Premix) 3.375 gm in 50 mls @ 100 mls/hr IVPB Q8H [facility] PRN Reason: Protocol Last Admin: 04/09/18 15:30 Dose: 100 mls/hr Potassium Chloride 20 meq/ (Dextrose/Sodium Chloride) 1,010 mls @ 100 mls/hr IV .Q10H6M [facility] Last Admin: 04/09/18 08:51 Dose: 100 mls/hr Metoclopramide HCl (Reglan) 10 mg IVP Q6H [facility] Last Admin: 04/09/18 09:45 Dose: 10 mg Oxycodone/Acetaminophen (Percocet 5/325 Mg Tab) 2 tab PO Q4H PRN PRN Reason: Pain, moderate (4-7) Stop: 04/11/18 14:00 Pantoprazole Sodium (Protonix Ec Tab) 40 mg PO DAILY [facility] Last Admin: 04/09/18 09:45 Dose: 40 mg Physical Exam - Constitutional Appears: No Acute Distress - Head Exam Head Exam: ATRAUMATIC, NORMOCEPHALIC - Eye Exam Eye Exam: EOMI, PERRL - Neck Exam Neck exam: Negative for: Lymphadenopathy, Thyromegaly - Respiratory Exam Respiratory Exam: NORMAL BREATHING PATTERN. absent: Rales, Rhonchi, Wheezes - Cardiovascular Exam Cardiovascular Exam: REGULAR RHYTHM, +S1, +S2. absent: Gallop, Rubs, Systolic Murmur - GI/Abdominal Exam GI & Abdominal Exam: Mass, Normal Bowel Sounds. absent: Organomegaly, Tenderness Additional comments: Periumbilical induration - Rectal Exam Rectal Exam: Deferred - Extremities Exam Extremities exam: Negative for: calf tenderness, pedal edema Results - Vital Signs Recent Vital Signs: Last Vital Signs Temp 98.0 F 04/09/18 15:44 Pulse 61 04/09/18 15:44 Resp 20 04/09/18 15:44 BP 148/81 04/09/18 15:44 Pulse Ox 97 04/09/18 15:44 - Labs Result Diagrams: 04/09/18 07:18 04/09/18 07:18 Labs: Laboratory Results - last 24 hr 04/08/18 04/09/18 04/09/18 15:44 07:18 07:18 WBC 6.2 RBC 4.59 Hgb 13.0 Hct 37.8 MCV 82.2 MCH 28.4 MCHC 34.5 RDW 13.4 Plt Count 209 MPV 8.9 Neut % (Auto) 63.0 Lymph % (Auto) 26.6 [place] % (Auto) 9.7 Eos % (Auto) 0.1 Baso % (Auto) 0.6 Neut # (Auto) 3.9 Lymph # (Auto) 1.6 [place] # (Auto) 0.6 Eos # (Auto) 0.0 Baso # (Auto) 0.0 Sodium 143 Potassium 3.6 Chloride 106 Carbon Dioxide 24 Anion Gap 16 BUN 3 L Creatinine 0.8 Est GFR ( Amer) > 60 Est GFR (Non-Af Amer) > 60 Random Glucose 103 Calcium 8.9 C. difficile Ag & Toxin Negative Assessment & Plan (1) Diverticulitis Assessment and Plan: Patient is being treated with Zosyn and Flagyl. Plan is to repeat colonoscopy in four to six weeks. Status: Acute
== END 2018-04-09 18:02 | disposition home or self-care (01) | DRG 581 ==
LOC: C.ER 18:10 → C.9E 23:00 → C.3T 23:00
PROVIDERS: ADMIT Internal Medicine; ATTEND Internal Medicine
PROC: 0W9F0ZZ Drainage of Abdominal Wall, Open Approach (ICD-10-PCS; principal; 2018-04-06 09:00)
DX: T81.4XXA Infection following a procedure, initial encounter (principal); L02.211 Cutaneous abscess of abdominal wall; K65.1 Peritoneal abscess; K57.32 Diverticulitis of large intestine without perforation or abscess without bleeding; I12.9 Hypertensive chronic kidney disease with stage 1 through stage 4 chronic kidney disease, or unspecified chronic kidney disease; N18.9 Chronic kidney disease, unspecified; Z87.442 Personal history of urinary calculi; Z90.49 Acquired absence of other specified parts of digestive tract